=== PATIENT | male | born 2000 | race Caucasian/White ===

== ENCOUNTER 2025-09-10 08:38 | Outpatient (CLI) | payer BC, SELFPAY ==
[2025-09-10 09:34] LABS: PCR FLU A POSITIVE PCR FLU A (Negative); PCR FLU B Negative PCR FLU B (Negative); SARS PCR* Negative SARS-CoV-2 (Negative)
== END 2025-09-10 08:39 | disposition home or self-care (01) ==
PROVIDERS: PCP Physician Assistant Medical
DX: R50.9 Fever, unspecified (principal)
CPT/HCPCS: 87636